=== PATIENT | female | born 1985 | race American Indian/Alaskan Native ===

== ENCOUNTER 2016-09-09 17:06 | Emergency (ER) | payer OTHER ==
[2016-09-09 17:07] VITALS: BMI 30.7
[2016-09-09 17:30] VITALS: BP 120/75; RESP 16; O2SAT 98
--- NOTE | 2016-09-09 18:05 | ED PDOC ---
Arrival/HPI - General Chief Complaint: Female Genitourinary Time Seen by Provider: 09/09/16 18:04 Historian: Patient - History of Present Illness Narrative History of Present Illness (Text): 09/09/16 31-year-old female presents today with vaginal discharge. patient states she started out with a thick white vaginal discharge and tried to treat herself with Monistat. Patient states after 3 days the discharge has become a milky white discharge. Patient states she was seen by her woodwinds teacher yesterday and her woodwinds teacher told her don't worry it will go away on its own. Patient states she has a history of bacterial vaginosis and states she has a foul smell. Patient states she is sexually active with 1 partner 1 year. Patient denies abdominal pain. No chest pain or shortness of breath. Denies fevers or chills. No dizziness or weakness. No other complaints Past Medical History - Provider Review Nursing Documentation Reviewed: Yes - Travel History Have you recently traveled outside [place] w/in the past 3 mons?: No - Infectious Disease Hx of Infectious Diseases: None - Tetanus Immunization Tetanus Immunization: Unknown - Cardiac Hx Cardiac Disorders: No - Pulmonary Hx Respiratory Disorders: Yes Hx Asthma: Yes - Neurological Hx Neurological Disorder: No - HEENT Hx HEENT Disorder: No - Renal Hx Renal Disorder: No - Endocrine/Metabolic Hx Endocrine Disorders: No - Hematological/Oncological Hx Blood Disorders: No - Integumentary Hx Dermatological Disorder: No - Musculoskeletal/Rheumatological Hx Musculoskeletal Disorders: No - Gastrointestinal Hx Gastrointestinal Disorders: No - Genitourinary/Gynecological Hx Genitourinary Disorders: No - Psychiatric Hx Psychophysiologic Disorder: No Hx Substance Use: No - Surgical History Hx Dilation and Curettage: Yes Other/Comment: CYST REMOVED FRO BOTH AXILLA - Anesthesia Hx Anesthesia: Yes Hx Anesthesia Reactions: No Hx Malignant Hyperthermia: No - Suicidal Assessment Feels Threatened In Home Enviroment: No Family/Social History - Physician Review Nursing Documentation Reviewed: Yes Family/Social History: Unknown Family HX Smoking Status: Never Smoked Hx Alcohol Use: Yes Hx Substance Use: No Allergies/Home Meds Allergies/Adverse Reactions: Allergies acetaminophen [From Excedrin Migraine] Allergy (Verified 09/09/16 17:31) ANAPHYLAXIS apple Allergy (Verified 09/09/16 17:31) ANAPHYLAXIS aspirin [From Excedrin Migraine] Allergy (Verified 09/09/16 17:31) ANAPHYLAXIS caffeine [From Excedrin Migraine] Allergy (Verified 09/09/16 17:31) ANAPHYLAXIS chlorpheniramine maleate [From Advil Allergy Sinus] Allergy (Verified 09/09/16 17:31) ANAPHYLAXIS ciprofloxacin [From Cipro] Allergy (Verified 09/09/16 17:31) SWELLING ciprofloxacin HCl [From Cipro] Allergy (Verified 09/09/16 17:31) SWELLING ibuprofen [From Advil Allergy Sinus] Allergy (Verified 09/09/16 17:31) ANAPHYLAXIS Penicillins Allergy (Verified 09/09/16 17:31) ANAPHYLAXIS pseudoephedrine HCl [From Advil Allergy Sinus] Allergy (Verified 09/09/16 17:31) ANAPHYLAXIS Review of Systems - Review of Systems Constitutional: absent: Fatigue, Fevers Respiratory: absent: SOB, Cough Cardiovascular: absent: Chest Pain, Palpitations Gastrointestinal: absent: Abdominal Pain, Diarrhea, Nausea, Vomiting Genitourinary Female: Vaginal Discharge. absent: Dysuria, Frequency, Hematuria , Vaginal Bleeding Musculoskeletal: absent: Arthralgias, Back Pain, Neck Pain Neurological: absent: Headache, Dizziness Physical Exam Vital Signs Reviewed: Yes Vital Signs Temp Pulse Resp BP Pulse Ox 09/09/16 17:26 98.3 F 78 16 120/75 98 Temperature: Afebrile Blood Pressure: Normal Pulse: Regular Respiratory Rate: Normal Appearance: Positive for: Well-Appearing, Non-Toxic, Comfortable Pain Distress: None Mental Status: Positive for: Alert and Oriented X 3 - Systems Exam Head: Present: Atraumatic Mouth: Present: Moist Mucous Membranes Neck: Present: Normal Range of Motion Respiratory/Chest: Present: Clear to Auscultation, Good Air Exchange. No: Respiratory Distress, Accessory Muscle Use Cardiovascular: Present: Regular Rate and Rhythm, Normal S1, S2. No: Murmurs Abdomen: Present: Normal Bowel Sounds. No: Tenderness, Distention, Rebound, Guarding Genitourinary/Pelvic Exam: Present: Normal External Genitalia, Vaginal Discharge (thin white vaginal discharge noted; ), Cervical os Closed, Other ( chaparoned by tiesha ALEMAN RN). No: Vaginal Bleeding, Vaginal Lesions, Adenexal Tenderness, Adenexal Mass, Cervical Motion Tendernes Back: Present: Normal Inspection. No: Midline Tenderness, Paraspinal Tenderness Neurological: Present: GCS=15, Speech Normal Skin: Present: Warm, Dry, Normal Color. No: Rashes Psychiatric: Present: Alert, Oriented x 3 Medical Decision Making ED Course and Treatment: 09/09/16 31yr old female with vaginal discharge. + white vaginal discharge. will send GC/chlamydia will d/c home with flagyl 500mg bid x 7 days for bacterial vaginosis. advised f/u with pmd and ob/gyn. advised return if symptoms worsen,persist or if new symptoms develop. Patient verbalizes understanding of discharge instructions and need for immediate followup. I advised the patient to call the emergency room in 5 days to check on the status of her gonorrhea and chlamydia cultures if she has not heard from us by then. all aspects of this case were discussed the attending of record. Impression; vaginal discharge. Flagyl 1 tablet twice daily 7 days Follow-up with her woodwinds teacher within the next 2 days Follow-up with primary care physician within the next 2 days Return immediately if symptoms worsen persist or if new concerning symptoms develop Call the emergency room approximately 5 days to check on the status of your cultures. [phone] Disposition/Present on Arrival - Present on Arrival Any Indicators Present on Arrival: No History of DVT/PE: No History of Uncontrolled Diabetes: No Urinary Catheter: No History of Decub. Ulcer: No History Surgical Site Infection Following: None - Disposition Have Diagnosis and Disposition been Completed?: Yes Diagnosis: Vaginal discharge Disposition: HOME/ ROUTINE Disposition Time: 18:05 Patient Plan: Discharge Condition: GOOD Discharge Instructions (ExitCare): Vaginal Discharge (ED) Additional Instructions: Flagyl 1 tablet twice daily 7 days Follow-up with her woodwinds teacher within the next 2 days Follow-up with primary care physician within the next 2 days Return immediately if symptoms worsen persist or if new concerning symptoms develop Call the emergency room approximately 5 days to check on the status of your cultures. [phone] Prescriptions: metroNIDAZOLE [Flagyl] 500 mg PO BID #14 tab Referrals: Madhav Higgins MD [Primary Care Provider] - Follow up with primary Venkatesh Fiore DO [Staff Provider] - Follow up with primary
[2016-09-09 18:31] VITALS: PULSE 79; TEMP 98.1
== END 2016-09-09 18:32 | disposition home or self-care (01) ==
LOC: ED 17:06
DX: N89.8 Other specified noninflammatory disorders of vagina (principal)

== ENCOUNTER 2017-08-14 06:11 | Emergency (ER) | payer BC, OTHER ==
[2017-08-14 06:11] VITALS: BMI 30.7
[2017-08-14 06:40] VITALS: RESP 18
--- NOTE | 2017-08-14 07:56 | ED PDOC ---
Arrival/HPI - General Chief Complaint: Female Genitourinary Time Seen by Provider: 08/14/17 07:25 Historian: Patient - History of Present Illness Narrative History of Present Illness (Text): 08/14/17 07:30 32 year old female, whose past medical history includes asthma and cholecystectomy (02/2017), who presents to the emergency department complaining of vaginal discharge since one week. Patient reports the discharge began as a white thick substance and had mild foul smell with itchiness. She notes taking over the counter medication for yeast infection but it only got worse and now she is complaining of yellow discharge. Patient denies any abdominal pain, dysuria, frequency, abdominal pain, fever, back pain, or other complaints. PMD: None Time/Duration: 1 week Symptom Onset: Gradual Symptom Course: Worsening Context: Home Past Medical History - Provider Review Nursing Documentation Reviewed: Yes - Infectious Disease Hx of Infectious Diseases: None - Tetanus Immunization Tetanus Immunization: Unknown - Cardiac Hx Cardiac Disorders: No - Pulmonary Hx Asthma: Yes (NO MEDS.; NEVER HOSPITALIZED) - Neurological Hx Neurological Disorder: No - HEENT Hx HEENT Disorder: No - Renal Hx Renal Disorder: No - Endocrine/Metabolic Hx Endocrine Disorders: No - Hematological/Oncological Hx Blood Disorders: No - Integumentary Hx Dermatological Disorder: No - Musculoskeletal/Rheumatological Hx Musculoskeletal Disorders: No - Gastrointestinal Hx Gastrointestinal Disorders: No - Genitourinary/Gynecological Hx Genitourinary Disorders: Yes Other/Comment: HX: IRREGULAR MENSES - Psychiatric Hx Psychophysiologic Disorder: No Hx Substance Use: No - Surgical History Hx Cholecystectomy: Yes Other/Comment: HX: CYST REMOVED FROM BOTH AXILLARY AREAS. HX: TOP (AGE 19YRS. OLD)/ovary surgery - Anesthesia Hx Anesthesia: Yes Hx Anesthesia Reactions: No Hx Malignant Hyperthermia: No - Suicidal Assessment Feels Threatened In Home Enviroment: No Family/Social History - Physician Review Nursing Documentation Reviewed: Yes Family/Social History: Unknown Family HX Smoking Status: Never Smoked Hx Alcohol Use: Yes Frequency of alcohol use: Socially Hx Substance Use: No Allergies/Home Meds Allergies/Adverse Reactions: Allergies apple Allergy (Verified 08/14/17 06:41) ANAPHYLAXIS aspirin [From Excedrin Migraine] Allergy (Verified 08/14/17 06:41) ANAPHYLAXIS caffeine [From Excedrin Migraine] Allergy (Verified 08/14/17 06:41) ANAPHYLAXIS chlorpheniramine maleate [From Advil Allergy Sinus] Allergy (Verified 08/14/17 06:41) ANAPHYLAXIS ciprofloxacin [From Cipro] Allergy (Verified 08/14/17 06:41) SWELLING ciprofloxacin HCl [From Cipro] Allergy (Verified 08/14/17 06:41) SWELLING ibuprofen [From Advil Allergy Sinus] Allergy (Verified 08/14/17 06:41) ANAPHYLAXIS Penicillins Allergy (Verified 08/14/17 06:41) ANAPHYLAXIS pseudoephedrine HCl [From Advil Allergy Sinus] Allergy (Verified 08/14/17 06:41) ANAPHYLAXIS Home Medications: Home Meds Medication Instructions Recorded Confirmed No Known Home Med 08/14/17 08/14/17 Review of Systems - Review of Systems Constitutional: absent: Fevers ENT: absent: Sinus Congestion Respiratory: absent: SOB Cardiovascular: absent: Chest Pain Gastrointestinal: absent: Abdominal Pain Genitourinary Female: Vaginal Discharge (white thick substance). absent: Dysuria Musculoskeletal: absent: Back Pain Skin: absent: Rash Neurological: absent: Headache Endocrine: absent: Diaphoresis Physical Exam Vital Signs Reviewed: Yes Vital Signs Temp Pulse Resp BP Pulse Ox 08/14/17 08:32 98 F 70 18 122/69 98 08/14/17 06:35 98.0 F 73 18 119/73 100 Temperature: Afebrile Blood Pressure: Normal Pulse: Regular Respiratory Rate: Normal Appearance: Positive for: Well-Appearing, Non-Toxic, Comfortable Pain Distress: None Mental Status: Positive for: Alert and Oriented X 3 - Systems Exam Head: Present: Atraumatic, Normocephalic Pupils: Present: PERRL Extroacular Muscles: Present: EOMI Conjunctiva: Present: Normal Mouth: Present: Moist Mucous Membranes Respiratory/Chest: Present: Clear to Auscultation, Good Air Exchange. No: Respiratory Distress, Accessory Muscle Use Abdomen: Present: Normal Bowel Sounds. No: Tenderness, Distention, Peritoneal Signs, Rebound, Guarding Genitourinary/Pelvic Exam: Present: Vaginal Discharge (white thick discharge), Other (rod piler: Joana Britt) Neurological: Present: GCS=15, CN II-XII Intact, Speech Normal Skin: Present: Warm, Dry, Normal Color. No: Rashes Psychiatric: Present: Alert, Oriented x 3, Normal Insight, Normal Concentration Medical Decision Making ED Course and Treatment: 08/14/17 Impression: 32 year old female with white thick vaginal discharge since 1 week. Differential Diagnosis included but are not limited to vaginal candidiasis Plan: -- Labs -- Diflucan -- Urinalysis -- Reassess and disposition Progress Notes: 08/14/17 08:00 Patient states being allergic to Penicillin and has no allergies to Amoxicillin. Patient received Rocephin in the past and there was no allergy to the medication. Discussion was made about STD treatment secondary to risk of infection and patient feels she's placed herself at risk so would like the treatment prophylacticly . Rocephin and Azithromycin given. - Lab Interpretations Lab Results: Lab Results 08/14/17 07:46: Urine Color Yellow, Urine Appearance Clear, Urine pH 6.0, Ur Specific [place] <= 1.005, Urine Protein Negative, Urine Glucose (UA) Negative, Urine Ketones Negative, Urine Blood Negative, Urine Nitrate Negative, Urine Bilirubin Negative, Urine Urobilinogen 0.2, Ur Leukocyte Esterase Negative I have reviewed the lab results: Yes - Medication Orders Current Medication Orders: Discontinued Medications Azithromycin (Zithromax) 1,000 mg PO STAT STA PRN Reason: Protocol Stop: 08/14/17 08:03 Last Admin: 08/14/17 08:23 Dose: 1,000 mg Ceftriaxone Sodium (Rocephin) 250 mg IM STAT STA PRN Reason: Protocol Stop: 08/14/17 08:03 Last Admin: 08/14/17 08:24 Dose: 250 mg IM Administration Charges Document 08/14/17 08:24 [facility] (Rec: 08/14/17 08:24 [facility] [id number]) Charges for Administration # of IM Administrations 1 Fluconazole (Diflucan) 150 mg PO STAT STA PRN Reason: Protocol Stop: 08/14/17 07:37 Last Admin: 08/14/17 07:57 Dose: 150 mg - Scribe Statement The provider has reviewed the documentation as recorded by the Phuc De La Torre Provider Scribe Attestation: All medical record entries made by the Scribe were at my direction and personally dictated by me. I have reviewed the chart and agree that the record accurately reflects my personal performance of the history, physical exam, medical decision making, and the department course for this patient. I have also personally directed, reviewed, and agree with the discharge instructions and disposition. Disposition/Present on Arrival - Present on Arrival Any Indicators Present on Arrival: No History of DVT/PE: No History of Uncontrolled Diabetes: No Urinary Catheter: No History of Decub. Ulcer: No History Surgical Site Infection Following: None - Disposition Have Diagnosis and Disposition been Completed?: Yes Diagnosis: Vaginal candidiasis Disposition: HOME/ ROUTINE Disposition Time: 08:15 Patient Plan: Discharge Condition: IMPROVED Discharge Instructions (ExitCare): Vulvovaginal Yeast Infection Additional Instructions: Ms Wong, thank you for letting us take care of you today. Your provider was Dr. Hough. You were treated for Vaginal Candidiasis. The emergency medical care you received today was directed at your acute symptoms. If you were prescribed any medication, please fill it and take as directed. It may take several days for your symptoms to resolve. Return to the Emergency Department if your symptoms worsen, do not improve, or if you have any other problems. Please contact your doctor or call one of the physicians/clinics you have been referred to that are listed on the Patient Visit Information form that is included in your discharge packet. Bring any paperwork you were given at discharge with you along with any medications you are taking to your follow up visit. Our treatment cannot replace ongoing medical care by a primary care provider (PCP) outside of the emergency department. Thank you for allowing the [facility] team to be part of your care today. If you had an X-Ray or CT scan: A Radiologist will review the ED reading if any change in treatment is needed we will contact you. If you had a blood, urine, or wound culture: It will take several days for the results, if any change in treatment is needed we will contact you. If you had an STI test: It will take 48 hours for the results. Please call after 1 week if you have not heard back. Referrals: Fatemeh River MD [Staff Provider] - Follow up with primary Forms: [employer] ([place]ish), WORK NOTE
[2017-08-14 08:02] LABS: URINE BILIRUBIN NEGATIVE (NEGATIVE); URINE BLOOD NEGATIVE (NEGATIVE); URINE GLUCOSE (UA) NEGATIVE (NEGATIVE); URINE LEUKOCYTE ESTERASE NEGATIVE Leu/uL (NEGATIVE); URINE PROTEIN NEGATIVE mg/dL (<30 mg/dL); URINE UROBILINOGEN 0.2 E.U./dL (<1 E.U./dL)
[2017-08-14] MEDS ORDERED: cefTRIAXone (Rocephin) 250 mg Inj IM STA (08:02)
[2017-08-14 08:08] LABS: URINE APPEARANCE CLEAR (CLEAR); URINE COLOR YELLOW (YELLOW)
[2017-08-14 08:32] VITALS: BP 122/69; PULSE 70; TEMP 98; O2SAT 98
== END 2017-08-14 08:33 | disposition home or self-care (01) ==
LOC: ED 06:11
DX: B37.3 Candidiasis of vulva and vagina (principal)
CPT/HCPCS: 81003; 87086; 87491; 87591; 96372; 99283; J0696

== ENCOUNTER 2018-03-17 16:55 | Emergency (ER) | payer BC, OTHER ==
[2018-03-17 16:56] VITALS: BMI 30.7
[2018-03-17 17:00] VITALS: TEMP 97.8
[2018-03-17 17:48] LABS: URINE BILIRUBIN NEGATIVE (NEGATIVE); URINE BLOOD MODERATE (NEGATIVE); URINE GLUCOSE (UA) NEGATIVE (NEGATIVE); URINE LEUKOCYTE ESTERASE NEGATIVE Leu/uL (NEGATIVE); URINE PROTEIN NEGATIVE mg/dL (<30 mg/dL); URINE UROBILINOGEN 0.2 E.U./dL (<1 E.U./dL)
[2018-03-17 18:23] LABS: URINE APPEARANCE CLEAR (CLEAR)
[2018-03-17 18:24] LABS: URINE COLOR YELLOW (YELLOW)
[2018-03-17 18:55] LABS: URINE BACTERIA FEW (NEG); URINE EPITHELIAL CELLS 0 - 2 /hpf (0-5); URINE WBC 0 - 2 /hpf (0-6)
--- NOTE | 2018-03-17 19:29 | ED PDOC ---
Arrival/HPI - General Historian: Patient - History of Present Illness Narrative History of Present Illness (Text): 03/17/18 19:12 32yo female with no pmhx who present with complaint of right lower back pain, nausea and pelvic pain x 5days. States her LMP was February 20, but she started spotting 2days ago. States the spotting have odor and she is not sure if is related to her back pain. Notes that her back pain is with ambulation and after sitting for a while. States she lifts, but did not lift the day the pain started. Denies vomiting, diarrhea, constipation, fever, chills, focal weakness, saddle anesthesia, nausea, vomiting, urinary/fecal incontinence, any other complaint. <Jai Nick - Last Filed: 03/18/18 19:17> <Dev Lang - Last Filed: 03/22/18 18:38> - General Chief Complaint: Back Pain Time Seen by Provider: 03/17/18 17:12 Past Medical History - Provider Review Nursing Documentation Reviewed: Yes - Infectious Disease Hx of Infectious Diseases: None - Tetanus Immunization Tetanus Immunization: Unknown - Cardiac Hx Cardiac Disorders: No - Pulmonary Hx Asthma: Yes (NO MEDS.; NEVER HOSPITALIZED) - Neurological Hx Neurological Disorder: No - HEENT Hx HEENT Disorder: No - Renal Hx Renal Disorder: No - Endocrine/Metabolic Hx Endocrine Disorders: No - Hematological/Oncological Hx Blood Disorders: No - Integumentary Hx Dermatological Disorder: No - Musculoskeletal/Rheumatological Hx Musculoskeletal Disorders: No - Gastrointestinal Hx Gall Bladder Disease: Yes - Genitourinary/Gynecological Hx Genitourinary Disorders: Yes Other/Comment: HX: IRREGULAR MENSES - Psychiatric Hx Psychophysiologic Disorder: No Hx Substance Use: No - Surgical History Hx Cholecystectomy: Yes Other/Comment: HX: CYST REMOVED FROM BOTH AXILLARY AREAS. HX: TOP (AGE 19YRS. OLD)/ovary surgery - Anesthesia Hx Anesthesia: Yes Hx Anesthesia Reactions: No Hx Malignant Hyperthermia: No - Suicidal Assessment Feels Threatened In Home Enviroment: No <Jai Nick A - Last Filed: 03/18/18 19:17> Family/Social History - Physician Review Nursing Documentation Reviewed: Yes Family/Social History: Unknown Family HX Smoking Status: Never Smoked Hx Alcohol Use: Yes Frequency of alcohol use: Socially Hx Substance Use: No <Jai Nick A - Last Filed: 03/18/18 19:17> Allergies/Home Meds <Jai Nick - Last Filed: 03/18/18 19:17> <Dev Lang - Last Filed: 03/22/18 18:38> Allergies/Adverse Reactions: Allergies apple Allergy (Verified 08/14/17 06:41) ANAPHYLAXIS aspirin [From Excedrin Migraine] Allergy (Verified 08/14/17 06:41) ANAPHYLAXIS caffeine [From Excedrin Migraine] Allergy (Verified 08/14/17 06:41) ANAPHYLAXIS chlorpheniramine maleate [From Advil Allergy Sinus] Allergy (Verified 08/14/17 06:41) ANAPHYLAXIS ciprofloxacin [From Cipro] Allergy (Verified 08/14/17 06:41) SWELLING ciprofloxacin HCl [From Cipro] Allergy (Verified 08/14/17 06:41) SWELLING ibuprofen [From Advil Allergy Sinus] Allergy (Verified 08/14/17 06:41) ANAPHYLAXIS Penicillins Allergy (Verified 08/14/17 06:41) ANAPHYLAXIS pseudoephedrine HCl [From Advil Allergy Sinus] Allergy (Verified 08/14/17 06:41) ANAPHYLAXIS Home Medications: Home Meds Medication Instructions Recorded Confirmed RX: No Known Home Med 08/14/17 03/17/18 Review of Systems - Physician Review All systems were reviewed & negative as marked: Yes - Review of Systems Constitutional: Normal Eyes: Normal ENT: Normal Respiratory: Normal Cardiovascular: Normal Gastrointestinal: Abdominal Pain, Nausea. absent: Constipation, Diarrhea, Vomiting, Hematochezia, Hematemesis Genitourinary Female: Normal Musculoskeletal: Back Pain Skin: Normal Neurological: Normal Endocrine: Normal Hemo/Lymphatic: Normal Psychiatric: Normal <Jai Nick A - Last Filed: 03/18/18 19:17> Physical Exam Vital Signs Reviewed: Yes Vital Signs Temp Pulse Resp BP Pulse Ox 03/17/18 17:00 97.8 F 87 18 126/81 98 Temperature: Afebrile Blood Pressure: Normal Pulse: Regular Respiratory Rate: Normal Appearance: Positive for: Well-Appearing, Non-Toxic, Comfortable Pain Distress: None Mental Status: Positive for: Alert and Oriented X 3 - Systems Exam Head: Present: Atraumatic, Normocephalic Pupils: Present: PERRL Extroacular Muscles: Present: EOMI Conjunctiva: Present: Normal Mouth: Present: Moist Mucous Membranes Neck: Present: Normal Range of Motion Respiratory/Chest: Present: Clear to Auscultation, Good Air Exchange. No: Respiratory Distress, Accessory Muscle Use Cardiovascular: Present: Regular Rate and Rhythm, Normal S1, S2. No: Murmurs Abdomen: Present: Other (Soft). No: Tenderness, Distention, Peritoneal Signs, Rebound, Guarding, McBurney's Point Tender, Rovsing's Sign Present Back: No: Midline Tenderness, Paraspinal Tenderness, Pain with Leg Raise Upper Extremity: Present: Normal Inspection. No: Cyanosis, Edema Lower Extremity: Present: Normal Inspection. No: Edema Neurological: Present: GCS=15, CN II-XII Intact, Speech Normal Skin: Present: Warm, Dry, Normal Color. No: Rashes Psychiatric: Present: Alert, Oriented x 3, Normal Insight, Normal Concentration <Diru,Happiness A - Last Filed: 03/18/18 19:17> Vital Signs Temp Pulse Resp BP Pulse Ox 03/17/18 20:15 80 18 116/71 100 03/17/18 19:30 86 14 136/72 100 03/17/18 17:00 97.8 F 87 18 126/81 98 <Dev Lang - Last Filed: 03/22/18 18:38> Medical Decision Making ED Course and Treatment: 03/18/18 19:17 PT presented to ED for stated history. she was not in any distress. LS xray - No acute distress Transvaginal S - Nabothian cyst. Labs was reviewed unremarkable All result was DW the pt. 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 - Lab Interpretations Lab Results: Lab Results 03/17/18 17:13: Urine Color Yellow, Urine Appearance Clear, Urine pH 6.0, Ur Specific [place] 1.010, Urine Protein Negative, Urine Glucose (UA) Negative, Urine Ketones Negative, Urine Blood Moderate H, Urine Nitrate Negative, Urine Bilirubin Negative, Urine Urobilinogen 0.2, Ur Leukocyte Esterase Negative, Urine RBC 5 - 10, Urine WBC 0 - 2, Ur Epithelial Cells 0 - 2, Urine Bacteria Few - RAD Interpretation Radiology Orders: 03/17/18 17:20 TRANSVAGINAL [US] Stat 03/17/18 17:23 LS SPINE WITH OBL > 18 YRS OLD [RAD] Stat <Diru,Happiness A - Last Filed: 03/18/18 19:17> - Lab Interpretations Lab Results: 03/17/18 19:30 03/17/18 19:30 Lab Results 03/17/18 19:30: Sodium 139, Potassium 3.9, Chloride 104, Carbon Dioxide 26, Anion Gap 12, BUN 13, Creatinine 0.7, Est GFR ( Amer) > 60, Est GFR (Non- Af Amer) > 60, Random Glucose 89, Calcium 9.3, Total Bilirubin 0.2, AST 29, ALT 17, Alkaline Phosphatase 65, Total Protein 7.8, Albumin 4.4, Globulin 3.4, Albumin/Globulin Ratio 1.3 03/17/18 19:30: PT 11.9, INR 1.04, APTT 35.8 03/17/18 19:30: WBC 7.4, RBC 4.70, Hgb 12.7, Hct 37.9, MCV 80.6, MCH 27.0, MCHC 33.5, RDW 13.5, Plt Count 255, MPV 9.7, Gran % 41.2 L, Lymph % (Auto) 49.6 H, Tillman % (Auto) 6.1 H, Eos % (Auto) 3.0, Baso % (Auto) 0.1, Gran # 3.04, Lymph # (Auto) 3.7 H, Tillman # (Auto) 0.5, Eos # (Auto) 0.2, Baso # (Auto) 0.01 03/17/18 17:13: C.trachomatis RNA (TMA) Not detected, N.gonorrhoeae RNA (TMA) Not detected 03/17/18 17:13: Urine Color Yellow, Urine Appearance Clear, Urine pH 6.0, Ur Specific [place] 1.010, Urine Protein Negative, Urine Glucose (UA) Negative, Urine Ketones Negative, Urine Blood Moderate H, Urine Nitrate Negative, Urine Bilirubin Negative, Urine Urobilinogen 0.2, Ur Leukocyte Esterase Negative, Urine RBC 5 - 10, Urine WBC 0 - 2, Ur Epithelial Cells 0 - 2, Urine Bacteria Few - RAD Interpretation Radiology Orders: 03/17/18 17:20 TRANSVAGINAL [US] Stat 03/17/18 17:23 LS SPINE WITH OBL > 18 YRS OLD [RAD] Stat <Dev Lang - Last Filed: 03/22/18 18:38> - PA / [employer] / Resident Statement / has reviewed & agrees with the documentation as recorded. <Dev Lang - Last Filed: 03/22/18 18:38> Disposition/Present on Arrival - Present on Arrival Any Indicators Present on Arrival: No History of DVT/PE: No History of Uncontrolled Diabetes: No Urinary Catheter: No History of Decub. Ulcer: No History Surgical Site Infection Following: None - Disposition Have Diagnosis and Disposition been Completed?: Yes Disposition Time: 20:10 Patient Plan: Discharge <Jai Nick - Last Filed: 03/18/18 19:17> <Dev Lang - Last Filed: 03/22/18 18:38> - Disposition Diagnosis: Back pain, Abdominal pain Disposition: HOME/ ROUTINE Condition: STABLE Discharge Instructions (ExitCare): Low Back Pain in Adults, Acute Abdomen (Belly Pain) Additional Instructions: Follow up with your Doctor Return to ED for any new or worsening symptoms Referrals: Madhav Higgins MD [Primary Care Provider] - Follow up with primary Forms: [employer] ([employer])
[2018-03-17 19:50] LABS: ALB/GLOB RATIO 1.3 (1.1-1.8); ALBUMIN 4.4 g/dL (3.0-4.8); ALT/SGPT 17 U/L (7-56); AST/SGOT 29 U/L (14-36); BLOOD UREA NITROGEN 13 mg/dL (7-21); CALCIUM 9.3 mg/dL (8.4-10.5); GFR NON-AFRICAN AMERICAN > 60
[2018-03-17 19:57] LABS: BASO # 0.01 K/mm3 (0.0-2.0); BASO % 0.1 % (0.0-3.0); EOS # 0.2 (0.0-0.7); GRAN # 3.04 (1.4-6.5); GRAN % 41.2 % (50.0-68.0); HEMOGLOBIN 12.7 g/dL (12.0-16.0); LYMPH # 3.7 (1.2-3.4); LYMPH % 49.6 % (22.0-35.0); MEAN CELL VOLUME 80.6 fl (80.0-105.0); MEAN CORPUSCULAR HGB CONC 33.5 g/dl (31.0-37.0); MEAN PLATELET VOLUME 9.7 fl (7.0-11.0); MONO # 0.5 (0.1-0.6); MONO % 6.1 % (1.0-6.0); RBC 4.7 10^6/uL (3.5-6.1); RED CELL DISTRIBUTION WIDTH 13.5 % (11.5-14.5); WHITE BLOOD COUNT 7.4 10^3/ul (4.5-11.0)
[2018-03-17 19:59] LABS: INR 1.04; PARTIAL THROMBOPLASTIN TIME 35.8 Seconds (25.1-36.5); PROTHROMBIN TIME 11.9 SECONDS (9.4-12.5)
[2018-03-17 20:18] VITALS: BP 116/71; PULSE 80; RESP 18; O2SAT 100
--- NOTE | 2018-03-18 09:57 | RAD ---
Date of service: 03/17/2018 PROCEDURE: Radiographs of the Lumbar Spine. HISTORY: leg pain COMPARISON: No prior. FINDINGS: BONES: Normal alignment. No listhesis. No fracture. DISC SPACES: Unremarkable. OTHER FINDINGS: None. IMPRESSION: Unremarkable radiographs of the lumbar spine.
--- NOTE | 2018-03-18 15:50 | US ---
Date of service: 03/17/2018 HISTORY: pelvic pain/vaginal discharge - last menstrual period is unknown. COMPARISON: None available. TECHNIQUE: Transvaginal pelvic ultrasound was performed using grayscale and color Doppler technique in transverse and longitudinal projections. FINDINGS: UTERUS: Measures 6.2 x 3.6 x 3.8 cm. Normal in size and appearance. No fibroid or other mass lesion seen. ENDOMETRIUM: Measures 4.9 mm in diameter. Unremarkable. CERVIX: Nabothian cyst identified at the cervix which measures 8 mm greatest dimension with the cervix otherwise unremarkable. RIGHT OVARY: Measures 4.2 x 2.0 x 1.7 cm. No solid mass. Normal flow. LEFT OVARY: Measures 3.2 x 2.6 x 2.5 cm cm. No solid mass. Normal flow. FREE FLUID: No significant free fluid noted. OTHER FINDINGS: None. IMPRESSION: A solitary nabothian cyst is seen at the cervix posteriorly with unremarkable appearing myometrium and endometrium as well as bilateral adnexal compartments. Further clinical correlation is recommended. Concordant preliminary report from [facility], 03/17/2018.
== END 2018-03-17 20:15 | disposition home or self-care (01) ==
LOC: ED 16:55
DX: M54.5 Low back pain (principal); R10.9 Unspecified abdominal pain